=== PATIENT | female | born 1950 | race Caucasian/White ===

== ENCOUNTER 2021-01-03 07:39 | Observation (INO) ==
[~2021-01-03 07:39] MED LIST: Buffered Lidocaine 1% SYRIN 1 ml INTRADERM ONE; Lactated Ringers 1000 ml BAG 1,000 ML IV SCH
[2021-01-03] MEDS ORDERED: HYDROmorphone 1 MG/1 ML SYRINGE IV PRN (07:45)
[2021-01-03] MEDS ORDERED: Naloxone 0.4 mg VIAL 0.4 mg/ml 1 ml VIAL IV PRN (07:45)
[2021-01-03] MEDS ORDERED: diPHENhydraMINE IV 50 MG/ML 1 ml VIAL (BENADRYL) IV PRN ×2 (07:45→12:47)
[2021-01-03] MEDS ORDERED: Prochlorperazine 5 mg/ml 2 ml VIAL (10 mg) IV PRN (07:45)
[2021-01-03] MEDS ORDERED: Ondansetron 4 mg VIAL 2 MG/ML 2 ml VIAL IV PRN ×2 (07:52→12:47)
[2021-01-03] MEDS ORDERED: Dexamethasone IV 4 MG/ML VIAL 1 ml VIAL ONE (08:01)
[2021-01-03] MEDS ORDERED: Lidocaine 2% PF 5 ML VIAL ONE (08:01)
[2021-01-03] MEDS ORDERED: Ondansetron 4 mg VIAL 2 MG/ML 2 ml VIAL ONE (08:01)
[2021-01-03] MEDS ORDERED: Midazolam 2 mg/2 ml VIAL 1 mg/ml 2 ml VIAL (2 mg) ONE ×2 (08:01→08:59)
[2021-01-03] MEDS ORDERED: fentaNYL 100 mcg/2 ml 50 MCG/ML VIAL ONE (08:02)
[2021-01-03] MEDS ORDERED: Phenylephrine IV 10 MG/ML 1 ml VIAL ONE (08:05)
[2021-01-03] MEDS ORDERED: Clindamycin 900 MG/D5W BAG 900 MG/50 ML BAG IVPB ONE (08:06)
[2021-01-03] MEDS ORDERED: Ketamine HCL 50 mg/ml 10 ml VIAL (500 MG) ONE (08:07)
[2021-01-03] MEDS ORDERED: ROPIVACAINE 5 MG/ML 30 ML BTL (0.5%) ONE (08:31)
[2021-01-03] MEDS ORDERED: Propofol 10 mg/ml 100 ML BTL 100 ML ONE (08:54)
[2021-01-03] MEDS ORDERED: Ropivacaine 5 MG/ML 20 ML VIAL 0.5% (100 MG) ONE (09:12)
[2021-01-03] MEDS ORDERED: EPHEDrine (Pressors) 50 MG/ML VIAL ONE (10:31)
[2021-01-03 10:52] LABS: Body Fluid Source Synovial Fluid
[2021-01-03 11:55] LABS: Body Fluid Mono 5 %
[2021-01-03] MEDS ORDERED: Ondansetron ODT 4 mg TAB 4 MG TAB PO PRN (12:47)
[2021-01-03] MEDS ORDERED: Morphine 2 MG/ML SYRINGE IV PRN (12:47)
[2021-01-03] MEDS ORDERED: diPHENhydraMINE 25 mg TAB PO PRN (12:47)
[2021-01-03] MEDS ORDERED: Lactulose 30 ml UDC PO PRN (12:47)
[2021-01-03] MEDS ORDERED: Magnesium Hydroxide LIQ 30 ML UDC PO PRN (12:47)
[2021-01-03] MEDS: Lactated Ringers 1000 ml BAG 1,000 ML IV SCH (14:39)
[2021-01-03] MEDS: Clindamycin 600 MG/D5W BAG 600 MG/50 ML BAG IV SCH (17:41)
[2021-01-03] MEDS: oxyCODONE/Acetamin 5/325 mg TAB PO PRN (22:03)
[2021-01-03] MEDS: Magnesium Hydroxide LIQ 30 ML UDC PO SCH (22:03)
[2021-01-04] MEDS: Lactated Ringers 1000 ml BAG 1,000 ML IV SCH (01:35)
[2021-01-04] MEDS: Clindamycin 600 MG/D5W BAG 600 MG/50 ML BAG IV SCH ×2 (01:35→10:21)
[2021-01-04 05:33] LABS: Hematocrit 27 % (35-47); Hemoglobin 8.9 g/dL (12.0-16.0)
[2021-01-04 05:34] LABS: Calcium 9.3 mg/dL (8.6-10.3); EGFR African American 141.9 (>60); EGFR Non-African American 117.3 (>60); Potassium 4.4 mmol/L (3.5-5.0)
[2021-01-04 08:47] LABS: Platelet Count Platelets clumped. 10^3/uL (150-450)
[2021-01-04] MEDS ORDERED: Vitamin THERAPEUTIC TAB PO SCH (09:00)
[2021-01-04] MEDS: oxyCODONE/Acetamin 5/325 mg TAB PO PRN (09:03)
[2021-01-04] MEDS: Magnesium Hydroxide LIQ 30 ML UDC PO SCH (09:04)
[2021-01-04 11:40] VITALS: BP 96/54
[2021-01-05 15:40] LABS: Hepatitis C Antibody Negative (Negative)
[2021-01-06 20:39] LABS: B. garinii/B. afzellii PCR Negative (Negative)
== END 2021-01-04 13:20 | disposition home or self-care (01) ==
LOC: SSU 07:39 → OR 07:39
PROVIDERS: ADMIT Orthopaedic Surgery Adult Reconstructive Orthopaedic Surgery; ATTEND Orthopaedic Surgery Adult Reconstructive Orthopaedic Surgery

== ENCOUNTER 2023-10-30 09:38 | Observation (INO) ==
[~2023-10-30 09:38] MED LIST changes: -Buffered Lidocaine 1% SYRIN 1 ml INTRADERM ONE; +HYDROmorphone 1 MG/1 ML SYRINGE IV PRN; -Lactated Ringers 1000 ml BAG 1,000 ML IV SCH; +Naloxone 0.4 mg VIAL 0.4 mg/ml 1 ml VIAL IV PRN; +Ondansetron 4 mg VIAL 2 MG/ML 2 ml VIAL IV PRN; +fentaNYL 100 mcg/2 ml 50 MCG/ML VIAL IV PRN
[2023-10-30] MEDS ORDERED: ceFAZolin 2 GM PREMIX 2 GM/50 ML BAG ONE (10:38)
[2023-10-30] MEDS ORDERED: Buffered Lidocaine 1% SYRIN 1 ml ONE (10:38)
[2023-10-30] MEDS ORDERED: Tranexamic Acid 1 GM/100ML BAG 2,000 MG/200 ML BAG IV ONE (10:38)
[2023-10-30 10:41] LABS: Rapid COVID-19 Molecular Undetected (Undetected)
[2023-10-30] MEDS ORDERED: Midazolam 2 mg/2 ml VIAL 1 mg/ml 2 ml VIAL (2 mg) ONE ×2 (10:50→12:08)
[2023-10-30] MEDS ORDERED: Dexamethasone IV 4 MG/ML VIAL 1 ml VIAL ONE ×2 (10:51→12:31)
[2023-10-30] MEDS ORDERED: ROPIVACAINE 5 MG/ML 30 ML BTL (0.5%) ONE ×2 (10:51→11:51)
[2023-10-30] MEDS: Lactated Ringers 1000 ml BAG 1,000 ML IV SCH ×2 (11:03→16:27)
[2023-10-30] MEDS: Buffered Lidocaine 1% SYRIN 1 ml INTRADERM ONE (11:03)
[2023-10-30] MEDS ORDERED: Lidocaine 2% PF 5 ML VIAL ONE (12:00)
[2023-10-30] MEDS ORDERED: KETAMINE HCL 10 MG/ML 20 ml VIAL (200 MG) ONE (12:16)
[2023-10-30] MEDS ORDERED: Ondansetron 4 mg VIAL 2 MG/ML 2 ml VIAL ONE (12:31)
[2023-10-30] MEDS ORDERED: Glycopyrrolate IV 0.2 MG/ML 1 ML VIAL ONE (12:35)
[2023-10-30] MEDS ORDERED: Morphine 2 MG/ML SYRINGE IV PRN (12:44)
[2023-10-30] MEDS ORDERED: Ondansetron ODT 4 mg TAB 4 MG TAB PO PRN (12:44)
[2023-10-30] MEDS ORDERED: Lactulose 30 ml UDC PO PRN (12:44)
[2023-10-30] MEDS ORDERED: Magnesium Hydroxide LIQ 30 ML UDC PO PRN (12:44)
[2023-10-30] MEDS ORDERED: Ondansetron 4 mg VIAL 2 MG/ML 2 ml VIAL IV PRN (12:44)
[2023-10-30] MEDS ORDERED: Propofol 10 MG/ML 20 ML BTL ONE ×3 (13:05→14:10)
[2023-10-30] MEDS: ceFAZolin 1 GM ADVAN 1 GM in NS 0.9% 50 ML 50 ML IVPB SCH ×2 (15:53→20:05)
[2023-10-30] MEDS ORDERED: Albuterol HFA INHALER 8 gm MDI INH PRN (16:58)
[2023-10-30] MEDS: Magnesium Hydroxide LIQ 30 ML UDC PO SCH (20:04)
[2023-10-31 06:42] LABS: Hematocrit 33.1 % (35-45); Hemoglobin 11.1 g/dL (11.5-14.3)
[2023-10-31 06:51] LABS: Calcium 9.1 mg/dL (8.6-10.3); Creatinine, Serum 0.74 mg/dL (0.51-0.95); Potassium 4.4 mmol/L (3.5-5.0); eGFR CKD-EPI 86.4 (>60)
[2023-10-31 07:22] LABS: Platelet Count Platelets clumped. 10^3/uL (150-450)
[2023-10-31] MEDS: Vitamin THERAPEUTIC TAB PO SCH (08:43)
[2023-10-31 11:04] VITALS: BP 110/67
== END 2023-10-31 13:00 | disposition home or self-care (01) ==
LOC: SSU 09:38 → OR 09:38 → SSU 20:29
PROVIDERS: ADMIT Orthopaedic Surgery Adult Reconstructive Orthopaedic Surgery; ATTEND Orthopaedic Surgery Adult Reconstructive Orthopaedic Surgery